=== PATIENT | female | born 2000 | race Caucasian/White ===

== ENCOUNTER 2024-08-13 08:14 | Outpatient (CLI) | payer BC, SELFPAY ==
--- NOTE | 2024-08-13 08:15 | CRLHL7_ITS ---
For Patients: As a result of the Cures Act, medical imaging exams and procedure reports are released immediately into your electronic medical record. You may view this report before your referring provider. If you have questions, please contact your health care provider. OB ULTRASOUND LESS THAN 14 WEEKS, 08/13/2024 CLINICAL HISTORY: Dating. COMPARISON: None. TECHNIQUE: Real time pepe scale imaging of the fetus was performed transvaginal. FINDINGS: LMP: 06/13/2024. HARMEET by LMP: 03/18/2025. GA: 8 weeks 5 days. Previous US: No. CRL: 2.3 cm. FHR: 176 bpm. GEST SAC: 2.7 cm. YOLK SAC: 3.4 mm. RIGIT OV: N/V. LEFT OV: 3.6 x 2.8 x 1.9 cm, within normal limits. IMPRESSION: 1. Single living intrauterine with sonographic gestational age 9 weeks 0 days and sonographic due date 03/18/2025. 2. Subchorionic hemorrhage measures 1.5 x 1.0 x 2.1 cm. Henrique Bradley M.D. Diagnostic Radiologist [email or web address] Transcribed: 9:35 am DW/Dictated by: Henrique Bradley MD @ 08/13/2024 9:07:00 AM (Electronically Signed)
== END 2024-08-13 08:15 | disposition home or self-care (01) ==
LOC: US 08:14
PROVIDERS: PCP Physician Assistant; Visit Provider Physician Assistant
DX: Z34.91 Encounter for supervision of normal pregnancy, unspecified, first trimester (principal); O20.9 Hemorrhage in early pregnancy, unspecified; Z3A.09 9 weeks gestation of pregnancy
CPT/HCPCS: 76817; 83021; 86703; 86706; 86803; 86850; 86900; 86901; 87086; 87340; 87491; 87591

== ENCOUNTER 2024-08-13 09:07 | Outpatient (CLI) | payer BC, SELFPAY ==
[2024-08-13 15:40] LABS: Chlamydia DNA Amplified* NOT DETECTED (No Detected); GC DNA Amplified* NOT DETECTED (No Detected)
== END 2024-08-13 09:08 | disposition home or self-care (01) ==
PROVIDERS: PCP Physician Assistant; Visit Provider Physician Assistant
DX: Z34.81 Encounter for supervision of other normal pregnancy, first trimester (principal)
CPT/HCPCS: 83020; 83021; 85660; 86592; 86703; 86704; 86706; 86762; 86787; 86803; 86850; 86900; 86901; 87086; 87340; 87491; 87591

== ENCOUNTER 2024-10-23 13:41 | Emergency (ER) | payer BC, SELFPAY ==
--- OUTSIDE RECORDS SUMMARY | 2024-10-23 13:43 | XMS_ITS | Encounter Summary ---
Author Organization [place] Address [address] [facility] [place] [address] Care Team Providers Care Shake Table Operator Name Role Phone Lisa Bates MD Primary Care Provider Lisa Bates MD Unavailable [phone] Lisa Bates MD Unavailable [phone] Rama Marin APRN [facility] Unavailable [phone] Linda Rolle MD Unavailable [phone] Miguel Spaulding MD Unavailable [phone] Linda Rolle MD Unavailable [phone] Miguel Spaulding MD Unavailable [phone] Encounter Details Date Type Department Care Team (Late st Contact Info) Description 03/11/2013 [facility] Medical Advice [address], [address] [place] [address] Ford Navas Social History Tobacco Use Types Packs/Day Years Used Date Smoking Tobacco: Never Comments:Both parents smoke outside. 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 Gender Identity Not on file Sexual Orientation Not on file documented as of this encounter Plan of Treatment Not on file documented as of this encounter Visit Diagnoses Not on filedocumented in this encounter Additional Health Concerns Infection Onset Date Last Indicated Resolved Time Rule Out Parvovirus 11/09/2021 11/09/2021 11/13/19 22 7:58 PM CDT documented as of this encounter Care Teams Shake Table Operator Relationship Specialty Start Date End Date Lisa Bates MD PCP - General Family Practice 07/22/11 [place] [address] [place] [address] PCP - Assigned PCP 03/29/10 06/26/18 [place] [address] [place] [address] Assigned PCP 01/26/12 04/18/20 Rama Marin APRN CN [address] [address] Assigned OBGYN Provider 02/14/20 1 Linda Rolle MD [address] [facility] [place] [address] Assigned OBGYN Provider 11/13/21 Miguel Spaulding MD [address] [address] [address] [place] [address] Assigned OBGYN Provider 12/18/21 Linda Rolle MD [address] [facility] [place] [address] Assigned OBGYN Provider 01/15/22 Miguel Spaulding MD 303 [facility] [address] [place] [address] Assigned OBGYN Provider 07/09/2203/15 documented as of this encounter
--- OUTSIDE RECORDS SUMMARY | 2024-10-23 13:43 | XMS_ITS | Encounter Summary ---
Author Organization [place] Address [address] [place] [address] Care Team Providers Care Montessori Paraprofessional Name Role Phone Lisa Bates MD Primary Care Provider Linda Rolle MD Unavailable [phone] Miguel Spaulding MD Unavailable [phone] Linda Rolle MD Unavailable [phone] Miguel Spaulding MD Unavailable [phone] Encounter Details Date Type Department Care Team (Late st Contact Info) Description 10/19/2021 [facility] Medical Advice [facility] [address] [place] [address] Katie Crowder, RN Social History Tobacco Use Types Packs/Day Years Used Date Smoking Tobacco: Passive Smo ke Exposure - Never Smoker Smokeless Tobacco: Never Comments:Both parents smoke outside. 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 Gender Identity Not on file Sexual Orientation Not on file documented as of this encounter Plan of Treatment Not on file documented as of this encounter Visit Diagnoses Not on filedocumented in this encounter Additional Health Concerns Infection Onset Date Last Indicated Resolved Time Rule Out Parvovirus 11/09/2021 11/09/2021 11/13/19 7:58 PM CDT documented as of this encounter Care Teams Montessori Paraprofessional Relationship Specialty Start Date End Date Lisa Bates MD PCP - General Family Practice 07/22/11 Linda Rolle MD [address] [place] [address] Assigned OBGYN Provider 11/13/21 Miguel Spaulding MD 303 [facility] [address] [place] [address] Assigned OBGYN Provider 12/18/21 Linda Rolle MD [address] [place] [address] Assigned OBGYN Provider 01/15/22 Miguel Spaulding MD [address] [facility] [address] [place] [address] Assigned OBGYN Provider 07/09/2203/15 documented as of this encounter
--- OUTSIDE RECORDS SUMMARY | 2024-10-23 13:43 | XMS_ITS | Encounter Summary ---
Author Organization [place] Address [address] [place] [address] Care Team Providers Care Boat Buffer Plastic Name Role Phone Lisa Bates MD Primary Care Provider Lisa Bates MD Unavailable [phone] Lisa Bates MD Unavailable [phone] Rama Marin APRN [facility] Unavailable [phone] Linda Rolle MD Unavailable [phone] Miguel Spaulding MD Unavailable [phone] Linda Rolle MD Unavailable [phone] Miguel Spaulding MD Unavailable [phone] Encounter Details Date Type Department Care Team (Late st Contact Info) Description 02/23/2012 [facility] Medical [address], [address] [place] [address] Aida Muñoz Social History Tobacco Use Types Packs/Day Years Used Date Smoking Tobacco: Passive Smo ke Exposure - Never Smoker Comments:Both parents smoke outside. 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 PLANNER Gender Identity Not on file Sexual Orientation Not on file documented as of this encounter Plan of Treatment Not on file documented as of this encounter Visit Diagnoses Not on filedocumented in this encounter Additional Health Concerns Infection Onset Date Last Indicated Resolved Time Rule Out Parvovirus 11/09/2021 11/09/2021 11/13/19 22 7:58 PM CDT documented as of this encounter Care Teams Boat Buffer Plastic Relationship Specialty Start Date End Date Lisa Bates MD PCP - General Family Practice 07/22/11 [place] [address] [place] [address] PCP - Assigned PCP 03/29/10 06/26/18 [place] [address] [place] [address] Assigned PCP 01/26/12 04/18/20 Rama Marin APRN [facility] [address] [address] Assigned OBGYN Provider 02/14/20 1 Linda Rolle MD 303 [place] [address] Assigned OBGYN Provider 11/13/21 Miguel Spaulding MD [address] [address] [address] [place] [address] Assigned OBGYN Provider 12/18/21 Linda Rolle MD 303 [facility] [place] [address] Assigned OBGYN Provider 01/15/22 Miguel Spaulding MD 303 [facility] [address] [place] [address] Assigned OBGYN Provider 07/09/2203/15 documented as of this encounter
--- OUTSIDE RECORDS SUMMARY | 2024-10-23 13:43 | XMS_ITS | Encounter Summary ---
Author Organization [place] Address [address] [facility] [place] [address] Care Team Providers Care Research Geologist Name Role Phone Lisa Bates MD Primary Care Provider Lisa Bates MD Unavailable [phone] Lisa Bates MD Unavailable [phone] Rama Marin APRN [facility] Unavailable [phone] Linda Rolle MD Unavailable [phone] Miguel Spaulding MD Unavailable [phone] Linda Rolle MD Unavailable [phone] Miguel Spaulding MD Unavailable [phone] Encounter Details Date Type Department Care Team (Late st Contact Info) Description 05/30/2013 [facility] Medical Advice [address], [address] [place] [address] Ford Navas Social History Tobacco Use Types Packs/Day Years Used Date Smoking Tobacco: Never Comments:Both parents smoke outside. 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 Gender Identity Not on file Sexual Orientation Not on file documented as of this encounter Plan of Treatment Not on file documented as of this encounter Visit Diagnoses Not on filedocumented in this encounter Additional Health Concerns Infection Onset Date Last Indicated Resolved Time Rule Out Parvovirus 11/09/2021 11/09/2021 11/13/19 22 7:58 PM CDT documented as of this encounter Care Teams Research Geologist Relationship Specialty Start Date End Date Lisa Bates MD PCP - General Family Practice 07/22/11 [place] [address] [place] [address] PCP - Assigned PCP 03/29/10 06/26/18 [place] [address] [place] [address] Assigned PCP 01/26/12 04/18/20 Rama Marin APRN CN [address] [address] Assigned OBGYN Provider 02/14/20 1 Linda Rolle MD 303 [facility] [place] [address] Assigned OBGYN Provider 11/13/21 Miguel Spaulding MD [address] [address] [address] [place] [address] Assigned OBGYN Provider 12/18/21 Linda Rolle MD 303 [facility] [place] [address] Assigned OBGYN Provider 01/15/22 Miguel Spaulding MD 303 [facility] [address] 160 [place] [address] Assigned OBGYN Provider 07/09/2203/15 documented as of this encounter
--- OUTSIDE RECORDS SUMMARY | 2024-10-23 13:43 | XMS_ITS | Clinical Summary ---
Author Organization [place] Address [address] [facility] [place] [address] Care Team Providers Care Assembler Dielectric Heater Name Role Phone Lisa Bates MD Primary Care Provider Allergies Active Allergy Reactions Criticality Noted Date Comments Penicillins Rash Low 05/15/2022 Medications sertraline (ZOLOFT) 50 MG tabletIndicatio ns:Current mild episode of major depressive disorder without prior episode Take 1 tablet (50mg) orally daily 90 tablet 1 3 Active Additional Information Patient not taking.Reported on 06/30/2023 Active Problems Problem Noted Date Diagnosed Date Acute postoperative anemia due to expected blood loss 05/18/2022 Obesity during , delivered 05/18/2022 delivery delivered 05/18/2022 obesity due to excess calories 06/21/2016 Headache 08/29/2013 Overview (01/23/2015): Problem list name updated by automated process. Provider to review ADHD (attention deficit hyperactivity disorder) 09/03/2009 Resolved Problems Problem Noted Date Diagnosed Date Resolved Date Labor and delivery indicatio n for care or intervention 05/15/2022 05/18/2022 Swelling of lower extremity during 3 05/18/2022 Supervision of other high ri sk , antepartum 05/10/2022 05/18/2022 Rh negative state in antepar mary alice period, third trimester 04/19/2022 05/18/2022 Obesity affecting in third trimester 04/19/2022 05/18/2022 Nexplanon insertion 8 - remove on or before 10/06/2020 10/06/2017 04/19/2022 Obesity 01/02/2015 06/21/2016 Overweight child 12/18/2009 01/02/2015 Routine infant or child health check 10/14/2004 12/16/2010 Encounters Date Type Department Care Team Description 10/21/2024 Medical Correspondence [facility] Information Management [address] [facility] [address] [place] [address] Scan, Non-Provider 10/21/[address] [facility] [place] [address] [facility] [address] [place] [address] Rima Hicks MD related condition, antepartum (Primary Dx) 08/09/[address] [facility] [place] [address] [facility] [address] [place] [address] Miguel Spaulding MD Pt request from Last 3 Months Immunizations Immunization Administration Dates Next Due Comvax (HIB/HepB) 06/18/2001,01/19/2001,11/17/19 01 DTAP (<7y) 10/14/2004, 2,03/26/2001,2000,2000 HEPA 12/16/2010,12/18/2009 HIB (PRP-T) 01/03/2002 HPV 10/11/2012,12/16/2010,12/18/2009 Influenza (IIV3) PF 01/28/2013, 8,04/25/2007,2006 Influenza Vaccine >6 months,quad, PF 02/01/2022, 03/05/2018 MMR (MMRII) 10/14/2004,09/21/2001 Mantoux Tuberculin Skin Test 12/12/2023,06/23/19 17 Meningococcal ACWY (Menactra ) 08/29/2013 Pneumococcal (PCV 7) 03/26/2001,01/19/2001,11/16 Poliovirus, inactivated (IPV) 10/14/2004 ,09/21/2001,01/19/2001,2000 TDAP (Adacel,Boostrix) 03/08/2022 TDAP Vaccine (Adacel) 08/29/2013,10/11/2012 Varicella (Varivax) 04/25/2007,09/21/2001 Family History Relation Status Comments Brother 1 Alive Brother 2 Brother 3 Alive Father Alive Maternal Grandfather Alive Maternal Grandmother Alive Mother Alive Paternal Grandfather Alive Paternal Grandmother Alive Social History Tobacco Use Types Packs/Day Years Used Date Smoking Tobacco: Never Passive Smoke Exposure: Current Smokeless Tobacco: Never Tobacco Cessation:Counseling Given: Not Answered Alcohol Use Standard Drinks/Week Comments Not Currently 0 (1 standard drink = 0.6 oz pur e alcohol) PHQ-2 Answer Date Recorded PHQ-2 Score 0 08/15/2022 [place] Depression Scale Answer Date Recorded Last EPDS Total Score Not on file 05/16/2022 The thought of harming myself has occurred to me . 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 Not on file Not on file Last Filed Vital Signs Vital Sign Reading Time Taken Comments Blood Pressure 118/72 06/30/2023 12:56 PM BUTTERMILK DRIER OPERATOR Pulse 62 06/30/2023 12:56 PM BUTTERMILK DRIER OPERATOR Temperature 36.4 C (97.6 F) 06/30/2023 12:56 PM BUTTERMILK DRIER OPERATOR Respiratory Rate 14 06/30/2023 12:56 PM BUTTERMILK DRIER OPERATOR Oxygen Saturation 99% 06/30/2023 12:56 PM BUTTERMILK DRIER OPERATOR Inhaled Oxygen Concentration - - Weight 117 kg (258 lb) 06/30/2023 12:56 PM BUTTERMILK DRIER OPERATOR Height 160 cm (5' 3) 11/09/2021 9:53 AM CDT Body Mass Index 45.7 11/09/2021 9:53 AM CDT Plan of Treatment Health Maintenance Due Date Last Done Comments ANNUAL REVIEW OF HM ORDERS 2000 DEPRESSION ACTION PLAN 2000 YEARLY PREVENTIVE VISIT 06/21/2017 06/21/19 17, 01/02/2015, 10/11/2012, Additional history exists CHLAMYDIA SCREENING 11/09/2022 11/09/2021, 7 PHQ-9 02/14/2023 08/15/2022, 06/23, 07/04/2022, Additional history exists COVID-19 VACCINE ( season) 2023 PAP 11/09/2024 11/09/2021 INFLUENZA VACCINE (#1) 2024 , 03/05/2018, 01/28/2013, Additional history exists ADVANCE CARE PLANNING 01/04/2027 01/04/2022 DTAP/TDAP/TD VACCINE (9 - Td or Tdap) 03/08/2032 03/08/2022, 08/29/2013, 10/11/2012, Additional history exists ZOSTER VACCINE (1 of 2) 2050 PNEUMOCOCCAL VACCINE: PEDIATRICS (0 to 5 YEARS) AND AT-RISK PATIENTS (6 to 49 YEARS) Aged Out 03/26/2001, 01/19/2001, 2000 No longer eligible based on patient's age to complete this topic HEPATITIS B VACCINE Completed 06/18/2001, 01/19/2001, 2000 HPV VACCINE Completed 10/11/2012, 11/23, 12/18/2009 MENINGITIS VACCINE Aged Out 08/29/2013 No longer eligible based on patient's age to complete this topic HEPATITIS C SCREENING Completed 10/28/2021 HIV SCREENING Completed 10/28/2021 MENINGITIS B VACCINE Aged Out No long er eligible based on patient's age to complete this topic Procedures Procedure Name Priority Date/Time Associated Diagnosis Comments LAB RESULT - HIM SCAN 08/13/2024 12:00 AM CDT CHLAMYDIA TRACHOMATIS PCR Routine 11/09/2021 10:15 AM CDT Screening examination for sexually transmitted disease GYNECOLOGIC CYTOLOGY Routine 11/09/2021 10:14 AM CDT Pap smear for cervical cancer screening HIV ANTIGEN ANTIBODY COMBO Routine 10/28/2021 4:08 PM CDT Supervision of normal first HEPATITIS C ANTIBODY Routine 10/28/2021 4:08 PM CDT Supervision of normal first from Last 3 Months or Most Recently Relevant to Health Maintenance Results * Lab Result - HIM Scan (08/13/2024 12:00 AM CDT) 08/13/2024 us Provider Outside NON-BEAKER LAB TESTING Final Result * CHLAMYDIA TRACHOMATIS PCR (11/09/2021 10:15 AM CDT) Chlamydia trachomatis Negative Negative 11/10/2021 1:45 PM CDT [facility] Comment:A negative result by world travel counselor mediated amplification does not preclude the presence of C. trachomatis infection because results are dependent on proper and adequate collection, absence of inhibitors and sufficient rRNA to be detected. Swab CERVIX UTERI STRUCTURE / Unknown Non-blood Collection / Unknown 11/09/2021 10:15 AM CDT 11/09/2021 11:04 AM CDT Linda Rolle MD LAB - MICRO GENERAL ORDERABLE S Final Result [facility] Inf. Diseases Diag. Lab [address] [facility], [address] [place] [address], [facility] [phone] * Pap imaged thin layer screen only - recommended age 21 - 24 years (11/09/2021 10:14 AM CDT) Interpretation Negative for Intraepithelial Lesion or Malignancy (NILM) 11/12/2021 9:55 AM CDT [facility] at 0955 CDT Comment Papanicolaou Test Limitations: Cervical cytology is a screening test with limited sensitivity, and regular screening is critical for cancer prevention. Pap tests are primarily effective for the diagnosis/prevent ion of squamous cell carcinoma, not adenocarcinoma or other cancers. 11/12/2021 9:55 AM CDT [facility] Specimen Adequacy Satisfactory for evaluation, endocervical/christina sformation zone component absent 11/12/2021 9:55 AM CDT [facility] Clinical Information 11/12/2021 9:55 AM CDT [facility] LMP/Menopause Date 08/24/2021 11/12/2021 9:55 AM CDT [facility] Reflex Testing No 11/12/2021 9:55 AM CDT [facility] Previous Abnormal? No 11/12/2021 9:55 AM CDT [facility] Performing Labs The technical component of this testing was completed at [facility] 11/12/2021 9:55 AM CDT [facility] Brushing CERVIX UTERI STRUCTURE / Unknown Non-blood Collection / Unknown 11/09/2021 10:14 AM CDT 11/09/2021 11:04 AM CDT Comment:Pap imaged thin laye r screen only - recommended age 21 - 24 yearsAnswer REQUIRED pap questions below:LMP (date): Patient's last menstrual period was 08/24/2021.PAP SOURCE: Cervical - EndocervicalPREVIOUS PAP RESULTS: No results found for: PAPPERTINENT CLINICAL HISTORY: Linda Rolle MD LAB - BEAKER AP Final Result [facility] Specialty Lab [address] [facility], [address] [phone], [facility] [phone] * HIV Antigen Antibody Combo (10/28/2021 4:08 PM CDT) HIV Antigen Antibody Combo Nonreactive Nonreactive 10/29/2021 10:28 AM CDT [facility]PROT/EN DO Comment:HIV-1 p24 Ag & HIV-1 /HIV-2 Ab Not Detected Blood STRUCTURE OF RIGHT UPPER LIMB / Unknown Venipuncture / Unknown 10/28/2021 4:08 PM CDT 10/28/2021 4:09 PM CDT Linda Rolle MD LAB - BLOOD ORDERABLES Final Result [facility]ENDO Specialty Core/Prot/Endo [address] [facility] [address], [address] [place] [address], [facility] [phone] * Hepatitis C antibody (10/28/2021 4:08 PM CDT) Hepatitis C Antibody Nonreactive Nonreactive 10/29/2021 10:28 AM CDT [facility]/EN DO Blood STRUCTURE OF RIGHT UPPER LIMB / Unknown Venipuncture / Unknown 10/28/2021 4:08 PM CDT 10/28/2021 4:09 PM CDT Narrative [facility] - 10/29/2021 10:28 AM CDT Assay performance characteristics have not been established for newborns, infants, and children. Linda Rolle MD LAB - BLOOD ORDERABLES Final Result [facility]PROT/ENDO Specialty Core/Prot/Endo [address] [facility] [address] [facility], [address] [place] [address], [facility] [phone] from Last 3 Months or Most Recently Relevant to Health Maintenance [place] For more information, please contact: [phone] * Full Code (Latest Code Status on File) Date Activated Date Inactivated Comments 05/16/2022 3:05 AM 05/18/2022 1:13 PM All basic an d advanced life-sustaining interventions are performed as appropriate Question Answer Comments Code status determined by: Discussion with patie nt/ legal decision maker * Full Code Date Activated Date Inactivated Comments 05/15/2022 4:08 AM 05/16/2022 3:05 AM All basic an d advanced life-sustaining interventions are performed as appropriate Question Answer Comments Code status determined by: Discussion with patie nt/ legal decision maker Care Teams Assembler Dielectric Heater Relationship Specialty Start Date End Date Lisa Bates MD PCP - General Family Practice 07/22/11
--- OUTSIDE RECORDS SUMMARY | 2024-10-23 13:44 | XMS_ITS | Encounter Summary ---
Author Organization [place] Address [address] [facility] [place] [address] Care Team Providers Care Checkout Operator Name Role Phone Lisa Bates MD Primary Care Provider Miguel Spaulding MD Unavailable [phone] Encounter Details Date Type Department Care Team (Late st Contact Info) Description 10/05/2023 [facility] [address] [place] [address] Aida Muñoz Social History Tobacco Use Types Packs/Day Years Used Date Smoking Tobacco: Never Passive Smoke Exposure: Current Smokeless Tobacco: Never Alcohol Use Standard Drinks/Week Comments Not Currently 0 (1 standard drink = 0.6 oz pur e alcohol) PHQ-2 Answer Date Recorded PHQ-2 Score 0 08/15/2022 [place] Depression Scale Answer Date Recorded Last EPDS Total Score Not on file 05/16/2022 The thought of harming myself has occurred to me . 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
--- OUTSIDE RECORDS SUMMARY | 2024-10-23 13:44 | XMS_ITS | Encounter Summary ---
Author Organization [place] Address [address] [facility] [place] [address] Care Team Providers Care Roof Plumber Name Role Phone Lisa Bates MD Primary Care Provider Miguel Spaulding MD Unavailable [phone] Encounter Details Date Type Department Care Team (Late st Contact Info) Description 07/18/2022 [facility] Medical Advice [facility] Women's [address] [place] [address] Joselyn Roper, [facility] Social History Tobacco Use Types Packs/Day Years Used Date Smoking Tobacco: Never Passive Smoke Exposure: Current Smokeless Tobacco: Never Alcohol Use Standard Drinks/Week Comments Not Currently 0 (1 standard drink = 0.6 oz pur e alcohol) PHQ-2 Answer Date Recorded PHQ-2 Score 3 07/18/2022 [place] Depression Scale Answer Date Recorded Last EPDS Total Score Not on file 05/16/2022 The thought of harming myself has occurred to me . 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 No / Unsure 07/18/2022 1:25 PM CDT documented as of this encounter Plan of Treatment Not on file documented as of this encounter Visit Diagnoses Not on filedocumented in this encounter Additional Health Concerns Assessment Noted Time PHQ-9 Depression Total Score: 13 023 2:31 PM CDT documented as of this encounter Care Teams Roof Plumber Relationship Specialty Start Date End Date Lisa Bates MD PCP - General Family Practice 07/22/11 Miguel Spaulding MD [address] [facility] [address] [place] [address] Assigned OBGYN Provider 07/09/2203/15 documented as of this encounter
--- OUTSIDE RECORDS SUMMARY | 2024-10-23 13:44 | XMS_ITS | Encounter Summary ---
Author Organization [place] Address [address] [facility] [place] [place] [address] Care Team Providers Care Blanker Operator Name Role Phone Lisa Bates MD Primary Care Provider Encounter Details Date Type Department Care Team (Late st Contact Info) Description 10/21/2024 Medical Correspondence [facility] Health Information Management [address] [facility] [address] [place] [address] Scan, Non-Provider Social History Tobacco Use Types Packs/Day Years Used Date Smoking Tobacco: Never Passive Smoke Exposure: Current Smokeless Tobacco: Never Alcohol Use Standard Drinks/Week Comments Not Currently 0 (1 standard drink = 0.6 oz pur e alcohol) PHQ-2 Answer Date Recorded PHQ-2 Score 0 08/15/2022 [place] Depression Scale Answer Date Recorded Last EPDS Total Score Not on file 05/16/2022 The thought of harming myself has occurred to me . 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
--- OUTSIDE RECORDS SUMMARY | 2024-10-23 13:44 | XMS_ITS | Encounter Summary ---
Author Organization [place] Address [address] [facility] [place] [address] Care Team Providers Care Control Board Operator Name Role Phone Lisa Bates MD Primary Care Provider Linda Rolle MD Unavailable [phone] Miguel Spaulding MD Unavailable [phone] Encounter Details Date Type Department Care Team (Late st Contact Info) Description 06/20/2022 [facility] Medical Advice [facility] Women's [address] [place] [phone] Joselyn Roper, [facility] Social History Tobacco Use Types Packs/Day Years Used Date Smoking Tobacco: Never Passive Smoke Exposure: Current Smokeless Tobacco: Never Alcohol Use Standard Drinks/Week Comments Not Currently 0 (1 standard drink = 0.6 oz pur e alcohol) PHQ-2 Answer Date Recorded PHQ-2 Score 0 05/26/2022 [place] Depression Scale Answer Date Recorded Last EPDS Total Score Not on file 05/16/2022 The thought of harming myself has occurred to me . 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 No / Unsure 05/26/2022 1:20 PM HIDE BUFFER documented as of this encounter Plan of Treatment Not on file documented as of this encounter Visit Diagnoses Not on filedocumented in this encounter Additional Health Concerns Assessment Noted Time PHQ-9 Depression Total Score: 0 05/26/19 1:43 PM HIDE BUFFER documented as of this encounter Care Teams Control Board Operator Relationship Specialty Start Date End Date Lisa Bates MD PCP - General Family Practice 07/22/11 Linda Rolle MD [address] [place] [address] Assigned OBGYN Provider 01/15/22 Miguel Spaulding MD [address] [facility] [address] [place] [address] Assigned OBGYN Provider 07/09/2203/15 documented as of this encounter
--- OUTSIDE RECORDS SUMMARY | 2024-10-23 13:44 | XMS_ITS | Encounter Summary ---
Author Organization [place] Address [address] [facility] [address] Care Team Providers Care Compliance Nurse Name Role Phone Lisa Bates MD Primary Care Provider Reason for Referral * Diagnostic Imaging Ultrasound (Routine) - Pending Review Specialty Diagnoses / Procedures Referred By Contac t Referred To Contact Radiology. Diagnoses related condition, antepartum Procedures [facility] US Comprehensive Single Rima Hicks MD [facility] [address] [place] [address] Phone: tel: fax: Referral ID Status Reason Start Date Expiration Date V isits Requested Visits Authorized [id number] Pending Review 10/21/2024 10/21/2025 1 1 * Consultation (Routine: Next available opening) - Pending Review Specialty Diagnoses / Procedures Referred By Contkristen t Referred To Contact Diagnoses related condition, antepartum Rima Hicks MD [facility] [address] [place] [address] Phone: tel: fax: [facility] [address] [place] [address] Phone: tel: fax: Referral ID Status Reason Start Date Expiration Date V isits Requested Visits Authorized [id number] Pending Review 10/21/2024 10/21/2025 1 1 Question Answer Preferred Location: [facility] Working Due Date: 03/20/2025 US Ordering Instructions: If US ONLY is requested, select appropriate US Order and DO NOT order [facility] Consult. Reason for Referral: Ultrasound Ultrasound - Includes Interpretation/Recommendations (*indicates inclusion of genetic counseling): Comprehensive US (>= 18w0d GA) - obesity Indication (* indicates inclusion of genetic counseling): Other (enter details in Comments) - obesity Fax number results need to be sent to: [facility] Rima Hitchcock [phone] Comments obesity Encounter Details Date Type Department Care Team (Latest Contact Info) Description 10/21/2024 Transcribe Orders [facility] [address] [place] [address] Rima Hicks MD [facility] [address] [place] [address] related condition, antepartum (Primary Dx) Social History Tobacco Use Types Packs/Day Years Used Date Smoking Tobacco: Never Passive Smoke Exposure: Current Smokeless Tobacco: Never Alcohol Use Standard Drinks/Week Comments Not Currently 0 (1 standard drink = 0.6 oz pur e alcohol) PHQ-2 Answer Date Recorded PHQ-2 Score 0 08/15/2022 [place] Depression Scale Answer Date Recorded Last EPDS Total Score Not on file 05/16/2022 The thought of harming myself has occurred to me . 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 Not on file documented as of this encounter Plan of Treatment Scheduled Orders Name Type Priority Associated Diagnoses Orde r Schedule [facility] US Comprehensive Single Imaging Routine related condition, antepartum Expected: 10/21/2024 (Approximate), Expires: 08/21/2025 Scheduled Referrals Name Type Priority Associated Diagnoses Orde r Schedule [facility] Referral - Referral Routine: Next available opening related condition, antepartum Expected: 10/21/2024 (Approximate), Expires: 04/19/2025 documented as of this encounter Visit Diagnoses Diagnosis related condition, antepartum- Primary documented in this encounter Additional Health Concerns Assessment Noted Time PHQ-9 Depression Total Score: 1 08/16/19 23 11:31 AM CDT documented as of this encounter Care Teams Compliance Nurse Relationship Specialty Start Date End Date Lisa Bates MD PCP - General Family Practice 07/22/11 documented as of this encounter
--- OUTSIDE RECORDS SUMMARY | 2024-10-23 13:44 | XMS_ITS | Encounter Summary ---
Author Organization [place] Address [address] [facility] [place] [address] Care Team Providers Care Territory Sales Professional Name Role Phone Lisa Bates MD Primary Care Provider Linda Rolle MD Unavailable [phone] Miguel Spaulding MD Unavailable [phone] Encounter Details Date Type Department Care Team (Late st Contact Info) Description 02/11/2022 [facility] [place] [facility] Women's [address] [place] [phone] Katie Crowder, RN Social History Tobacco Use Types Packs/Day Years Used Date Smoking Tobacco: Never Passive Smoke Exposure: Yes Smokeless Tobacco: Never Comments:Both parents smoke outside. 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 No / Unsure 02/01/2022 3:18 PM CDT documented as of this encounter Plan of Treatment Not on file documented as of this encounter Visit Diagnoses Not on filedocumented in this encounter Care Teams Territory Sales Professional Relationship Specialty Start Date End Date Lisa Bates MD PCP - General Family Practice 07/22/11 Linda Rolle MD [address] [place] [address] Assigned OBGYN Provider 01/15/22 Miguel Spaulding MD [address] [facility] [address] [place] [address] Assigned OBGYN Provider 07/09/2203/15 documented as of this encounter
--- OUTSIDE RECORDS SUMMARY | 2024-10-23 13:44 | XMS_ITS | Encounter Summary ---
Author Organization [place] Address [address] [facility] [place] [address] Care Team Providers Care Healthcare Account Manager Name Role Phone Lisa Bates MD Primary Care Provider Miguel Spaulding MD Unavailable [phone] Encounter Details Date Type Department Care Team (Late st Contact Info) Description 08/01/2022 [facility] Medical Advice [facility] Women's [address] [place] [address] Joselyn Roper, [facility] Social History Tobacco Use Types Packs/Day Years Used Date Smoking Tobacco: Never Passive Smoke Exposure: Current Smokeless Tobacco: Never Alcohol Use Standard Drinks/Week Comments Not Currently 0 (1 standard drink = 0.6 oz pur e alcohol) PHQ-2 Answer Date Recorded PHQ-2 Score 3 07/18/2022 [place] Depression Scale Answer Date Recorded Last EPDS Total Score Not on file 05/16/2022 The thought of harming myself has occurred to me . 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
[2024-10-23 13:49] VITALS: BP 125/80; PULSE 109; RESP 20; TEMP 36.3; O2SAT 98; BMI 45.5
--- NOTE | 2024-10-23 14:08 | ED_ITS ---
HPI - General Adult General Chief complaint: Neuro Symptoms/Altered Deficit Stated complaint: 19 weeks , R side numb Time Seen by Provider: 10/23/24 13:50 History of Present Illness HPI narrative: This 24-year-old female is 19 weeks with her 2nd . She comes in stating that she feels tingling sensation only on the right side of her body over the past 3 days. She states that it seemed to start more mildly in her right leg and now it does involve her right abdomen and right arm somewhat. She does not have any loss of strength. She does not have any speech change or visual change. She does not report a headache. She arrives here able to ambulate without any sign of difficulty. Related Data Home Medications ?Medication ?Instructions ?Recorded ?Confirmed GOY-aiex-AZ-omega 3 fatty no.1 27 cap PO 08/13/2409/23 0/25 mg-1 mg-300 mg capsule Allergies Allergy/AdvReac Type Severity Reaction Status Date / Time Penicillins Allergy Intermediate Rash Verified 10/11/24 12:51 Review of Systems Status of ROS: Reports: 10 or more systems reviewed and unremarkable except as noted in History and below Narrative: Constitutional: No fevers, no weight gain or loss. Eyes: No discharge. No vision changes. HENT: No congestion, no sore throat, no ear pain. Cardiovascular: No chest pain, no palpitations. Respiratory: No shortness of breath, no wheezes, no cough. Gastrointestinal: No abdominal pain, no vomiting, no diarrhea. Genitourinary: No dysuria, no hematuria. Musculoskeletal: Normal range of motion. Skin: No rashes, no pruritis. Neurological: No dizziness, weakness, speech change. Tingling sensation as described above. Endo/Heme/Allergies: No bruising or bleeding. No polydipsia. Pysch: no suicidality, no anxiety, no insomnia. All other systems reviewed and are negative. PFSH PFS Medical History depression ?F53.0 - depression (ICD-10) Surgical History History of ?Z98.891 - History of uterine scar from previous surgery (ICD-10) Social History Narrative: SOCIAL HISTORY: Occupation: Student at [employer]. Marital status: . Hoahaoism/cultural needs: no. Chemical or radiation exposure: no. Pre- tobacco use: no. Pre- alcohol use: no. Current tobacco use: no. Current alcohol use: no. Recreational drug use: no. Dietary restrictions: no. Blood transfusion acceptable in an emergency: no. PSYCHOSOCIAL HISTORY: History of depression or currently depressed: History of depression. Current or past physical, emotional, or sexual mistreatment: Denies. Problems that will make it hard to make it to appointments: Denies. What is your current living situation?: I presently have a place to live Problems where you live: no known problems In the past 12 months, utilities in danger of being shut off: no In past 12 months, lack of transportation kept you from medical appts, meetings, work, or getting things needed for daily living: no In the past 12 mos, have been you worried that your food would run out before you had money to buy more?: never true In the past 12 mos, the food you bought just didn't last and you didn't have money to buy more?: never true How often does anyone, including family, friends and others, physically hurt you : never How often does anyone, including family, friends and others, insult or talk down to you: never How often does anyone, including family, friends and others, threaten you with harm: never How often does anyone, including family, friends and others, scream or curse at you: never Exam Narrative: Exam Narrative: Constitutional: Well-developed, well-nourished, no acute distress. HEENT: Normocephalic, atraumatic. Neck: Normal range of motion. Nontender. Supple. Heart: Regular. No murmurs. Normal rate. Intact distal pulses. Lungs: Clear to auscultation. No chest discomfort. No wheezes, rhonchi, or rales. Abdomen: Normal bowel sounds. Nontender. No rebound tenderness. Genitalia: Deferred. Back: No midline tenderness. Normal range of motion. Extremities: Normal range of motion. No injury. Skin: Intact. No rash. Warm. No erythema or pallor. Neurologic: No weakness. Alert and oriented. No facial asymmetry. Tongue is midline. Wojigr-ap-fjey is normal. No pronator drift. Administrative Personal Assistant strength is equal bilaterally. Able to raise each leg from the bed. Psychiatric: No suicidality. No anxiety or depression. No insomnia. Nursing notes and vitals signs are reviewed. Const: Vital Signs, click to edit/add: Vital Signs - 24 hr 10/23/24 13:49 Temperature 97.4 F L Pulse Rate [Pulse Oximeter] 109 H Respiratory Rate 20 Blood Pressure [Ri ght Upper Arm] 125/80 Pulse Oximetry 98 Oxygen Delivery Me thod Room Air Course Vital Signs Vital signs: Initial Vital Signs Temperature 97.4 F L 10/23/24 13:49 Temperature Source Temporal Artery Scan 10/23/24 13:49 Pulse Rate 109 H 10/23/24 13:49 Respiratory Rate 20 10/23/24 13:49 Blood Pressure 125/80 10/23/24 13:49 Blood Pressure Mean 95 10/23/24 13:49 Blood Pressure Position Sitting 10/23/24 13:49 Pulse Oximetry 98 10/23/24 13:49 Oxygen Delivery Method Room Air 10/23/24 13:49 Vital Signs Temperature 97.4 F L 10/23/24 13:49 Pulse Rate 109 H 10/23/24 13:49 Respiratory Rate 20 10/23/24 13:49 Blood Pressure 125/80 10/23/24 13:49 Pulse Oximetry 98 10/23/24 13:49 Oxygen Delivery Method Room Air 10/23/24 13:49 Temperature 97.4 F L 10/23/24 13:49 Pulse Rate 109 H 10/23/24 13:49 Respiratory Rate 20 10/23/24 13:49 Blood Pressure 125/80 10/23/24 13:49 Pulse Oximetry 98 10/23/24 13:49 Oxygen Delivery Method Room Air 10/23/24 13:49 Medical Decision Making MDM Narrative Medical decision making narrative: This patient is 19 weeks and is reporting some tingling sensations on the right side of her body over the past 3 or 4 days. Her neurologic exam is completely normal. She does have sensation but states that at times there is tingling. I did state reassurances regarding her exam. Her vital signs are all in normal range except for her heart rate initially was a bit elevated. Ultrasound of her showed normal anatomy and activity. She was reassured with these results and is okay to be discharged home. Discharge Plan Discharge Clinical Impression: Paresthesias Patient Disposition: Home, Self-Care Condition: Stable Additional Instructions: Continue current plans. Follow up with MD return if worsening symptoms occur. Prescriptions: No Action FYS-ijau-YH-omega 3 fatty no.1 27-1-300 mg capsule PO Follow Up/Referrals: Ava Guzman PA-C [Primary Care Provider, FIELD MARKETING DIRECTOR] Stand Alone Forms: [facility] Info Instructions Procedures Ultrasound Other exam #1: Anatomical areas examined: at 19 weeks gestation. Indications: Paresthesias. Exam type: focused emergency ultrasound Description/findings: Normal anatomy at 19 weeks gestation. Normal heart activity and movement. Impression: Normal exam at 19 weeks gestation.
== END 2024-10-23 14:54 | disposition home or self-care (01) ==
PROVIDERS: Emergency Provider Emergency Medicine Emergency Medical Services; PCP Physician Assistant
DX: O26.892 Other specified pregnancy related conditions, second trimester (principal); R20.2 Paresthesia of skin; Z3A.19 19 weeks gestation of pregnancy
CPT/HCPCS: 76857; 99284

== ENCOUNTER 2024-12-24 11:15 | Outpatient (CLI) | payer BC, SELFPAY ==
--- NOTE | 2024-12-24 11:30 | CRLHL7_ITS ---
For Patients: As a result of the Cures Act, medical imaging exams and procedure reports are released immediately into your electronic medical record. You may view this report before your referring provider. If you have questions, please contact your health care provider. OB ULTRASOUND FOLLOW-UP/LIMITED, 12/24/2024 CLINICAL HISTORY: Obesity. COMPARISON: None. TECHNIQUE: Real time pepe scale imaging of the fetus was performed. Transabdominal imaging performed. FINDINGS: LMP: 06/13/2024. HARMEET by LMP: 03/20/2025. Gestation: Single. Cervix: Not visualized. Positioning: Breech. Amniotic Fluid: 7.0 cm SDP. Placenta: Technique: TA. Placenta Position: Posterior. Dopplers: Heart Rate: 144 bpm. BIOMETRY BPD: 6.8 cm, 27 weeks 2 days. 26% HC: 26.5 cm, 28 weeks 6 days. 58% AC: 25.0 cm, 29 weeks 2 days. 85% FL: 5.2 cm, 27 weeks 5 days. 33.0% FL/AC Ratio: 20.70% HC/AC Ratio: 1.06. EFW: 1244 grams, 2 lb 12 oz. Age by this US: 28 weeks 2 days. HARMEET by this US: 03/16/2025. Percentile by HARMEET: 71% IMPRESSION: 1. Sonographic gestational age 28 weeks 2 days and sonographic due date 03/16/2025. Sonographic age is 4 days ahead of the clinical age. 2. Estimated weight 71st percentile. Abdominal circumference 85th percentile. Henrique Bradley M.D. Diagnostic Radiologist [email or web address] Transcribed: 1:04 pm DW/Dictated by: Henrique Bradley MD @ 12/24/2024 12:06:00 PM (Electronically Signed)
== END 2024-12-24 11:16 | disposition home or self-care (01) ==
LOC: US 11:16
PROVIDERS: PCP Physician Assistant; Visit Provider Obstetrics & Gynecology
DX: O99.213 Obesity complicating pregnancy, third trimester (principal); E66.01 Morbid (severe) obesity due to excess calories; Z68.41 Body mass index [BMI] 40.0-44.9, adult; Z3A.28 28 weeks gestation of pregnancy
CPT/HCPCS: 76816; 86592

== ENCOUNTER 2025-01-24 09:52 | Outpatient (CLI) | payer BC, SELFPAY ==
--- NOTE | 2025-01-24 10:00 | CRLHL7_ITS ---
For Patients: As a result of the Century Cures Act, medical imaging exams and procedure reports are released immediately into your electronic medical record. You may view this report before your referring provider. If you have questions, please contact your health care provider. OB ULTRASOUND LMP: 06/13/2024. HARMEET by LMP: 03/20/2025. GA: 32 w, 1 d. Single. INDICATION: Obesity. TECHNIQUE: Real time grayscale imaging of the fetus was performed. Transabdominal. CERVIX: Not visualized. POSITIONING: Vertex. AMNIOTIC FLUID: 6.0 cm. SDP (N: greater than 2 x 1 cm) PLACENTA: Technique: Transabdominal. PLACENTA POSITION: Posterior. DOPPLER: heart rate: 147 bpm. BIOMETRY: BPD: 8.5 cm. 34 w, 2 d, 92%. HC: 31.3 cm. 35 w, 0 d, 86%. AC: 30.5 cm. 34 w, 3 d, 96%. FL: 6.1 cm. 31 w, 5 d, 26%. FL/AC ratio: 20.03%. HC/AC ratio: 1.03. EFW: 2265g. Weight: 5 lbs., 0 oz. age by this US: 33 w, 6 d. HARMEET by this US: 03/08/2025. Percentile by HARMEET: 87%. IMPRESSION: 1. Sonographic gestational age 33 weeks 6 days and sonographic due date 03/08/2025. Sonographic age is 12 days ahead of the clinical age. 2. Estimated weight 87th percentile. Abdominal circumference 96th percentile. Hernique Bradley M.D. Diagnostic Radiologist [email or web address] MARCELLUS/mitra manriquez/Dictated by: Henrique Bradley MD @ 01/24/2025 10:48:00 AM (Electronically Signed)
== END 2025-01-24 09:53 | disposition home or self-care (01) ==
LOC: US 09:52
PROVIDERS: PCP Physician Assistant; Visit Provider Obstetrics & Gynecology
DX: O99.213 Obesity complicating pregnancy, third trimester (principal); E66.01 Morbid (severe) obesity due to excess calories; Z68.41 Body mass index [BMI] 40.0-44.9, adult; O36.63X0 Maternal care for excessive fetal growth, third trimester, not applicable or unspecified; Z3A.32 32 weeks gestation of pregnancy
CPT/HCPCS: 76816

== ENCOUNTER 2025-02-06 09:09 | Outpatient (CLI) | payer BC, SELFPAY ==
--- NOTE | 2025-02-06 09:15 | CRLHL7_ITS ---
For Patients: As a result of the Century Cures Act, medical imaging exams and procedure reports are released immediately into your electronic medical record. You may view this report before your referring provider. If you have questions, please contact your health care provider. Indication: BPP for obesity HARMEET: 03/20/2025. Technique: Real-time sonographic images of the pelvis were obtained transabdominally using grayscale, color, and Doppler imaging. Comparison: 01/24/2025. Findings: A single intrauterine is present in cephalic position. Cardiac activity in the fetus is demonstrated at 134 BPM. Placenta: Posterior. No previa or abruption. Amniotic Fluid: Single deepest pocket measures 4.4 centimeter. Biophysical profile: Breathin/2 Movement: 2/2 Tone: 2/2 Fluid volume: 2/2 Total: 11/29 Impression: 1. Single living intrauterine gestation in cephalic presentation, with heartrate 134 BPM. 2. Posterior placenta without previa or abruption. 3. Amniotic fluid with single deepest pocket measuring 4.4 centimeter. 4. BPP 11/29. Dictated by Jesse Ibanez MD @ 02/09/2025 12:32:30 PM (Electronically Signed)
== END 2025-02-06 09:10 | disposition home or self-care (01) ==
LOC: US 09:09
PROVIDERS: PCP Physician Assistant; Visit Provider Obstetrics & Gynecology
DX: O99.213 Obesity complicating pregnancy, third trimester (principal); E66.01 Morbid (severe) obesity due to excess calories; Z68.41 Body mass index [BMI] 40.0-44.9, adult; Z3A.34 34 weeks gestation of pregnancy
CPT/HCPCS: 76819

== ENCOUNTER 2025-02-13 10:05 | Outpatient (CLI) | payer BC, SELFPAY ==
--- NOTE | 2025-02-13 10:15 | CRLHL7_ITS ---
For Patients: As a result of the Cures Act, medical imaging exams and procedure reports are released immediately into your electronic medical record. You may view this report before your referring provider. If you have questions, please contact your health care provider. OB ULTRASOUND BIOPHYSICAL PROFILE HARMEET by LMP: 03/20/2025. GA: 35 w, 0 d. Single. Comparison: Ultrasound 02/06/2025. INDICATION: Morbid obesity. TECHNIQUE: Real time pepe scale imaging of the fetus was performed. Transabdominal. CERVIX: No visualized. POSITIONING: Vertex. AMNIOTIC FLUID: 7.0 cm. SDP (N: greater than 2 x 1 cm) BIOPHYSICAL PROFILE: Total score: 2. Gross body movements: 2. tone: 2. Respiratory activity: 2. Amniotic fluid: 2. (SDP N: greater than 2 x 1 cm) Total: 11/29. PLACENTA: Technique: Transabdominal. PLACENTA POSITION: Posterior. DOPPLER: heart rate: 134 bpm. IMPRESSION: Normal biophysical profile 11/29. Henrique Bradley M.D. Diagnostic Radiologist [email or web address] MARCELLUS/alysha JR/Dictated by: Henrique Bradley MD @ 02/13/2025 11:23:00 AM (Electronically Signed)
== END 2025-02-13 10:06 | disposition home or self-care (01) ==
LOC: US 10:06
PROVIDERS: Visit Provider Obstetrics & Gynecology
DX: O99.213 Obesity complicating pregnancy, third trimester (principal); E66.01 Morbid (severe) obesity due to excess calories; Z68.41 Body mass index [BMI] 40.0-44.9, adult; Z3A.35 35 weeks gestation of pregnancy
CPT/HCPCS: 76819

== ENCOUNTER 2025-02-19 07:51 | Outpatient (CLI) | payer BC, SELFPAY ==
[2025-02-19] VITALS (10 sets, daily range): BP systolic 111–128; BP diastolic 56–73; PULSE 72–101; RESP 16; TEMP 36.8
[2025-02-19] MEDS: ACETAMINOPHEN 500 MG TABLET 1000 MG PO (08:35)
[2025-02-19] MEDS: PROCHLORPERAZINE 10 MG TABLET PO (08:36)
[2025-02-19 08:53] LABS: Hematocrit* 32.9 % (33.0-51.0); Hemoglobin* 10.7 gm/dL (12.0-16.0); Mean Corpuscular HGB Conc 33 gm/dL (32-36); Mean Corpuscular Hemoglobin 26 pg (26-34); Mean Corpuscular Volume 81 fL (80-100); Red Blood Count* 4.05 m/uL (4.00-5.20); White Blood Count* 11.78 K/uL (4.50-11.00)
[2025-02-19 09:02] LABS: Slide Review Reflex No
[2025-02-19 09:06] LABS: Creatinine* 0.5 mg/dL (0.5-1.5); Estimated Glomerular Filt Rate 134 ml/min
[2025-02-19 09:07] LABS: Alanine Aminotransferase* 10 U/L (4-35); Aspartate Amino Transferase* 19 U/L (12-35)
[2025-02-19] MEDS: PROMETHAZINE 25 MG TABLET 12.5 MG PO (09:55)
--- NOTE | 2025-02-19 10:37 | PM.OBLDTN ---
OB - Triage/Final Diagnosis Visit Information Narrative: The patient is a 24 year old 2 para 1 at 35 weeks gestation by LMP, who presents with headache. is complicated by multiple sclerosis, history of , abnormal FAS (ureterocele, intrcardiac echogenic focus - low risk NIPT), obesity. Lakeshia notes onset of a headache since Monday. She notes it has been constant since that time, of varying severity. Generally, her symptoms were pretty mild (ranging from 1-4 on pain scale) where she did not require any treatment. She took tylenol 1000mg yesterday afternoon, with improvement but not resolution of symptoms. Starting at 0400 this morning, her headache is much more significant. Pain is rated as a 7/10 in severity, where she is intermittently tearful due to pain. She describes the pain as stabbing primarily behind her left eye, but it also radiates up her head and toward the jaw. She endorses associated photophobia, slight phonophobia. No nausea/vomiting. Denies any neck pain or upper extremity pain/numbness/tingling. No vision changes (floaters, black spots, decreased visual acuity). Denies focal neurologic deficits. Denies nasal congestion/drainage, cough, sore throat. No fever/chills. She notes her daughter has a slight cold, no other sick contacts. Patient was last seen by her neurologist for MS yesterday. She did report her headache there, notes that all of her neurologic exam was normal and they were not particularly worried about the headache. Patient denies any history of VTE/PE. She has no calf pain/erythema or unilateral edema. No chest pain or dyspnea. Vital signs entirely within normal limits. No hypertension noted, fever or tachycardia. General: Alert and oriented, in no acute distress. Patient does have the room dark. Psych: Appropriate mood and affect Neural: No apparent focal neurologic deficits. Extraocular movements normal. Patient is able to lift her eyebrows, smile and stick her tongue out symmetrically. No upper extremity weakness. She notes some paresthesia on the left side of her face, which with light touch makes her headache worse. Neck has full ROM, no nuchal rigidity. Labs: - CBC with white blood cell count of 11.78, hemoglobin 10.7, platelets 210, creatinine 0.5, AST 19, ALT 10 Treatment: - Tylenol 1000mg and compazine 10mg PO at 0830, pain went from 7 to 6.5/10 in 1 hour - Phenergan 12.5mg PO at 0930, pain went to 2/10. Repeat physical exam shows patient alert and conversant, lights on in room. She is well appearing. She notes she feels so much better since taking phenergan. Plan continued pain management with tylenol 1000mg Q6H PRN and phenergan 12.5mg Q8H PRN headache. Recommend increased hydration and a nap today. Headache, photophobia and phonophobia is thought to be secondary to migraine given response. No evidence of preeclampsia, entirely normotensive with normal labs. Clinical suspicion for acute intracranial pathology is low (RCVS, CSVT) given significant symptomatic improvement. Strict return precautions reinforced for worsening/recurrent symptoms, any focal neurologic deficits, fevers/chest pain/dyspnea or signs/symptoms of VTE. Evaluation Laboratory results: Laboratory Tests 02/19/25 Range/Units 08:40 WBC 11.78 H (4.50-11.00) K/uL RBC 4.05 (4.00-5.20) m/uL Hgb 10.7 L (12.0-16.0) gm/dL Hct 32.9 L (33.0-51.0) % MCV 81 (80-100) fL MCH 26 (26-34) pg MCHC 33 (32-36) gm/dL Plt Count 210 (140-440) K/uL Creatinine 0.5 (0.5-1.5) mg/dL Estimated GFR 134 ml/min AST 19 (12-35) U/L ALT 10 (4-35) U/L Vital signs: Vital Signs - 24 hr 02/19/25 08:08 02/19/25 08:10 02/19/25 08:16 Temperature 98.2 F Pulse Rate 94 101 H Respiratory Rate 16 Blood Pressure 120/71 120/73 02/19/25 08:31 02/19/25 08:45 02/19/25 09:01 Temperature Pulse Rate 95 93 93 Respiratory Rate Blood Pressure 119/66 116/66 115/58 L 02/19/25 09:15 02/19/25 09:31 02/19/25 09:46 Temperature Pulse Rate 93 99 93 Respiratory Rate Blood Pressure 111/56 L 119/72 111/65
--- NOTE | 2025-02-19 16:57 | PC.OBNST ---
NST Note NST Note Start: 02/19/25 07:56 Freq: ONCE Status: Discharge Protocol: Document 02/19/25 11:51 BAW (Rec: 02/19/25 11:52 BAW No Response) NST Note 2 Para (# of births) 1 EDC 03/20/25 Gestational Age In 35 Weeks & 6 Days Weeks & Days Patient Presented Headache with Complaint(s) of Reactive Yes Appropriate for Yes Gestational Age SHANT Urias RNC Date 02/19/25 Reactive Yes Appropriate for Yes Gestational Age SHANT Pineda RN Date 02/19/25 OB NST charge Yes Complete NST Note Yes via Write Note The provider's electronic signature indicates the NST is reactive/appropriate for gestational age. *Note to provider: If an addendum is required, open the patient's chart and click on the note under the Nurse/Allied Health tab.
== END 2025-02-19 11:38 | disposition home or self-care (01) ==
LOC: OB OUT 07:51 → OB 07:54
PROVIDERS: Visit Provider Obstetrics & Gynecology
DX: O26.893 Other specified pregnancy related conditions, third trimester (principal); R51.9 Headache, unspecified; Z3A.35 35 weeks gestation of pregnancy
CPT/HCPCS: 36415; 59025; 82565; 84450; 84460; 85027; G0463; A9270

== ENCOUNTER 2025-02-21 09:04 | Outpatient (CLI) | payer BC, SELFPAY ==
--- NOTE | 2025-02-21 09:15 | CRLHL7_ITS ---
For Patients: As a result of the Cures Act, medical imaging exams and procedure reports are released immediately into your electronic medical record. You may view this report before your referring provider. If you have questions, please contact your health care provider. OB ULTRASOUND HARMEET by LMP: 03/20/2025. GA: 36 w, 1 d. Single. Comparison: 02/13/2025, 02/06/2025, 01/24/2025. INDICATION: Obesity. TECHNIQUE: Real time grayscale imaging of the fetus was performed. Transabdominal. CERVIX: Not visualized. POSITIONING: Vertex. AMNIOTIC FLUID: 4.8 cm. SDP (N: greater than 2 x 1 cm) BIOPHYSICAL PROFILE: 2: Gross body movements 2: tone 2: Respiratory activity 2: Amniotic fluid SDP (N: greater than 2 x 1 cm) 8/8: Total score PLACENTA: Technique: Transabdominal. PLACENTA POSITION: Posterior. DOPPLER: heart rate: 147 bpm. BIOMETRY: BPD: 9.3 cm. 37 w, 4 d, 91.0%. HC: 34.7 cm. 40 w, 2 d, 96.6%. AC: 36.6 cm. 40 w, 3 d, >97%. FL: 7.1 cm. 36 w, 4 d, 56.4%. FL/AC ratio: 19.50%. HC/AC ratio: 0.95. EFW: 3738 g. Weight: 8 lbs., 4 oz. age by this US: 38 w, 5 d. HARMEET by this US: 03/02/2025. Percentile by HARMEET: >97%. IMPRESSION: 1. Normal biophysical profile score 8/8. 2. Sonographic gestational age 38 weeks 5 days and sonographic due date 03/02/2025. Sonographic age is 18 days ahead of the clinical age. 3. Estimated weight greater than 97th percentile. Abdominal circumference greater than 97th percentile. Henrique Bradley M.D. Diagnostic Radiologist [email or web address] MARCELLUS/mitra manriquez/Dictated by: Henrique Bradley MD @ 02/21/2025 12:28:00 PM (Electronically Signed)
== END 2025-02-21 09:05 | disposition home or self-care (01) ==
LOC: US 09:04
PROVIDERS: Visit Provider Obstetrics & Gynecology
DX: O99.213 Obesity complicating pregnancy, third trimester (principal); E66.01 Morbid (severe) obesity due to excess calories; Z68.41 Body mass index [BMI] 40.0-44.9, adult; Z3A.36 36 weeks gestation of pregnancy
CPT/HCPCS: 76816; 76819; 87081; 87186; 87653

== ENCOUNTER 2025-02-21 10:18 | Outpatient (CLI) | payer BC, SELFPAY ==
[2025-02-22 07:58] LABS: Strep B DNA Probe POSITIVE (Negative)
[2025-02-22 08:31] LABS: Strep B Susceptibility Needed? Yes
== END 2025-02-21 10:19 | disposition home or self-care (01) ==
PROVIDERS: Visit Provider Midwife
DX: O99.213 Obesity complicating pregnancy, third trimester (principal); E66.01 Morbid (severe) obesity due to excess calories; Z68.41 Body mass index [BMI] 40.0-44.9, adult; Z3A.36 36 weeks gestation of pregnancy
CPT/HCPCS: 87081; 87186; 87653

== ENCOUNTER 2025-02-25 15:25 | Outpatient (CLI) | payer BC, SELFPAY ==
[2025-02-25 15:40] VITALS: PULSE 94; RESP 18; TEMP 36.8; O2SAT 100
[2025-02-25 15:49] VITALS: BP 120/73; PULSE 89
[2025-02-25 16:05] VITALS: BP 122/77; PULSE 94
[2025-02-25 16:20] VITALS: BP 116/76; PULSE 98
[2025-02-25] MEDS: ACETAMINOPHEN 500 MG TABLET 1000 MG PO (16:32)
[2025-02-25 16:35] VITALS: BP 117/74; PULSE 90
[2025-02-25] MEDS: LACTATED RINGERS 1000 ML 1,000 ML IV (16:48)
[2025-02-25] MEDS: METOCLOPRAMIDE HCL 5 MG/ML INJ 10 MG IVP (16:50)
--- NOTE | 2025-02-25 19:08 | PC.OBNST ---
NST Note NST Note Start: 02/25/25 15:40 Freq: ONCE Status: Active Protocol: Document 02/25/25 17:23 WMK (Rec: 02/25/25 19:08 WMK [id number]) NST Note 2 Para (# of births) 1 EDC 03/20/25 Gestational Age In 36 Weeks & 5 Days Weeks & Days Patient Presented Headache with Complaint(s) of Reactive Yes RN Kris RNC Date 02/25/25 Reactive Yes RN Floyd RNC Date 02/25/25 OB NST charge Yes Complete NST Note Yes via Write Note The provider's electronic signature indicates the NST is reactive/appropriate for gestational age. *Note to provider: If an addendum is required, open the patient's chart and click on the note under the Nurse/Allied Health tab.
== END 2025-02-25 17:55 | disposition home or self-care (01) ==
LOC: OB OUT 15:26 → OB 15:28
PROVIDERS: Visit Provider Obstetrics & Gynecology
DX: O26.893 Other specified pregnancy related conditions, third trimester (principal); R51.9 Headache, unspecified; Z3A.36 36 weeks gestation of pregnancy
CPT/HCPCS: 59025; G0463; A9270; J2765; J7120

== ENCOUNTER 2025-02-27 08:57 | Outpatient (CLI) | payer BC, SELFPAY ==
--- NOTE | 2025-02-27 09:15 | CRLHL7_ITS ---
For Patients: As a result of the Century Cures Act, medical imaging exams and procedure reports are released immediately into your electronic medical record. You may view this report before your referring provider. If you have questions, please contact your health care provider. INDICATION: Obesity COMPARISON: Obstetric ultrasound on February 21, 2025 and priors TECHNIQUE: Obstetric ultrasound, limited, transabdominal approach, utilizing grayscale and color Doppler as needed, biophysical profile exam FINDINGS: number: 1 Position: Vertex Placental Position: Posterior Amniotic fluid: DVP 6.5 cm. heart rate: 163 bpm. BPP Score: Fluid: 2 Breathin Movement: 0 Tone: 2 Total: 4 Uterus: No significant uterine findings. Ovaries: Not visualized Other: No pelvic free fluid IMPRESSION: Abnormal biophysical profile exam score of 4/8 with no points for tone or respiratory activity. Preliminary report was provided by the patient`s psychologist experimental following completion of the exam to Dr. Tena. Dictated by Nando Up MD @ 02/27/2025 10:26:26 AM (Electronically Signed)
== END 2025-02-27 08:58 | disposition home or self-care (01) ==
LOC: US 08:57
PROVIDERS: Visit Provider Obstetrics & Gynecology
DX: O99.210 Obesity complicating pregnancy, unspecified trimester (principal); E66.01 Morbid (severe) obesity due to excess calories; Z68.41 Body mass index [BMI] 40.0-44.9, adult
CPT/HCPCS: 76819

== ENCOUNTER 2025-02-27 11:21 | Inpatient (IN) | payer BC, SELFPAY ==
[2025-02-27] VITALS (26 sets, daily range): BP systolic 107–133; BP diastolic 65–97; PULSE 74–120; RESP 12–18; TEMP 36.4–36.9; O2SAT 95–99; BMI 46.4
[2025-02-27] MEDS: LACTATED RINGERS 500 ML 500 ML IV (10:26)
[2025-02-27 10:45] LABS: Hematocrit* 33.1 % (33.0-51.0); Hemoglobin* 10.8 gm/dL (12.0-16.0); Immature Granulocytes Abs Auto 0.07 K/uL (0.00-0.30); Immature Granulocytes Pct Auto 0.7 %; Mean Corpuscular HGB Conc 33 gm/dL (32-36); Mean Corpuscular Hemoglobin 26 pg (26-34); Mean Corpuscular Volume 81 fL (80-100); RDW Coefficient of Variation % 14.4 % (11.5-15.5); Red Blood Count* 4.10 m/uL (4.00-5.20); White Blood Count* 9.53 K/uL (4.50-11.00)
[2025-02-27 10:49] LABS: Lymphocytes Absolute Auto 1.60 K/uL (0.90-2.90)
[2025-02-27 11:19] LABS: Slide Review Reflex No
--- NOTE | 2025-02-27 11:33 | P.LDBA_ITS ---
Subjective History of Present Illness Narrative: Patient is being admitted to Labor and Delivery for 07/30 BPP. She is a 24 year old at 37.0 weeks gestation. Lakeshia reports decreased movements since last night that continued to now. Stated that if she didn't have an appointment, she would've come into the center. She had a scheduled BPP today that was nonreassuring 07/30. -2 for respiratory active and -2 for tone. SDP 6.5 cm. She has noted maybe 1 movement since being at the center but is unsure. She was sent to the center for monitoring via NST. Initial 45 minutes of reactive and reassuring strip noted. 6/10 BPP. I recommended delivery due to equivocal BPP, term gestational age, and continue decreased movement. That is also patient's preference and she would like to move forward with delivery. After our discussed, there were two subtle late decelerations and a small variable on NST. Spontaneous recovery noted. Moderate variability throughout. However, I recommended bypassing NPO status which would in 5 hrs to move towards a more urgent delivery given equivocal status. Reassured patient that we would still try for a neural axial anesthesia. Specific Issues/Plans Partner: Humza Daughter: Mary Baby boy: Clem #GBS positive Susceptibilities completed: no resistance identified # Multiple Sclerosis Diagnosed on 11/14/24 Seeing neurology. Magnesium and riboflavin during Undecided on which medication to start. Has follow up appointment Plan to start medication and not during (April) # LVL 2 US 11/18/24: intracardiac echogenic focus. 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 The fetus is Rh negative => does not need RhoGam. * F/U 12/09: Echogenic intracardiac focus re-visualized. Right sided ureterocele now associated with R distal hydroureter, normal kidneys w/o pyelectasis. * F/U w/ MFM at 28 wks for re-evaluation of R ureterocele, hydroureter and R kidney. Jan 06. Referral placed to urology for management. Can deliver in [place]. # obesity, BMI 44.9 Hemoglobin A1c: 4.8% Referral to green building engineer: Referral placed. Referral to anesthesia: Level 2 ultrasound and MFM consult: An echogenic cardiac focus and small anechoic cyst in the bladder were noted. Weekly testing (BPP) starting at 34 weeks: Scheduled Growth ultrasound at 28 and 34 weeks Delivery recommended at 39 weeks surveillance filled out on 12/13/2024 # history of * SROM 37 08/28. Arrest of descent (4 hrs of pushing) * Right occiput transverse presentation, variable decelerations, double layer closure (operative report scanned) * TOLAC Consent given on 10/11/2024 * Consent signed: [] * success: 32.3% * Declined TOLAC * Anticipated repeat delivery on 03/13/25 at 39 weeks. [scheduling form submitted on 02/06] # Rh-negative (Rh ordered in [place]) Fetus is Rh (-) so does not need rhogam # history of depression, treated with Wellbutrin XL 150 mg Imaging: * 11/18/24: EFW 80th percentile, AC 85th percentile. Posterior placenta, no previa, greater than 2 cm from internal os. Three-vessel cord. MVP 5.1 cm. Cervix visualized and closed at 3.98 cm. An echo intracardiac focus was seen in the left ventricle. A small anechoic cyst in the bladder (R ureterocele) * 12/09/24: Vtx. SDP 5.2cm. EFW: 951g, 2#2oz, 79%. Echogenic intracardiac focus. Right sided ureterocele now associated with R distal hydroureter, normal kidneys w/o pyelectasis. F/U w/ MFM at 28 wks for re-evaluation of R ureterocele, hydroureter and R kidney. Referral placed to urology for management. Can deliver in [place]. * 12/24/24: Lucho breech presentation, EFW 2 lb 12 oz or 1244 g (71%), BPD 26%, HC 58%, AC 85%, FL 33%, SDP 7.0 cm. * 01/06/2025: MS and follow-up: EFW: 1672 g, 83rd percentile. AC: 90th percentile. Recommendation: Referral was placed for pediatric urology given persistently visualized right ureter is seal and dilated distal ureter. We reviewed that this is reassuring that the bilateral renal pelvis and amniotic fluid remained normal. We discussed that this is most often associated with a duplicated collecting system with ectopic implantation of the ureter. Recommend follow-up ultrasound with MFM in 3-4 weeks to assess for renal pelvis dilation or other developing findings. There are after, anticipate weekly surveillance, which is presumed will be completed in your office. Deliveries currently recommended per routine obstetric indication at [place]. * 01/24/25 Growth BPD 92%, HC 86%, AC 96%, FL 26% EFW 87%, SDP 6.0, vertex * 02/10/25: EFW 88%tile, AC 97%tile. MVP 6.9 cm. BPP 11/29. Due to positioning, could not see right ureterocele very well. * 02/21/25: Normal biophysical profile score 11/29. Sonographic gestational age 38 weeks 5 days and sonographic due date 03/02/2025. Sonographic age is 18 days ahead of the clinical age. Estimated weight greater than 97th percentile. Abdominal circumference greater than 97th percentile. Vaccinations: COVID: Declines Flu: Declines Tdap: 02/21/25 RSV: Declines 32 week mental health: 02/21/25 Last pap: 10/22/21. PP pap OB - Problem Based A/P Additional Plan (1) Multiple sclerosis: Status: Acute (2) History of section complicating : Status: Acute (3) Rh negative status during : Status: Acute (4) Morbid obesity with BMI of 40.0-44.9, adult: Status: Acute Plan CS Consent The patient was consented for section and blood. She is having a delivery for the indication of: History of delivery x1, BPP 4-6/10. She understands that the four main categories of risk include pain, bleeding, infection, and damage to surrounding structures. Intraoperative pain will be manage with spinal anesthesia or epidural anesthesia. If that those are not effective or not appropriate for the clinical situation, general anesthesia will be administered. She understands that aspiration risk is most pronounced with general anesthesia when NPO status is less than 8hrs. Immediately postop, TAP block will be performed. Throughout her recovery course, she will have on PO pain medications such as ibuprofen, Tylenol, and oxycodone. Regarding infection, she understands that we will be delivering appropriate antibiotics, however that the risk of infection following section still is approximately 5-7%. She understands that though the risk is very low that there is always a risk of damage to the bladder, uterus, ovaries, fallopian tubes, bowels, ureters, or even the fetus (0.1-0.3%). She understands that most injuries can be addressed at the time of surgery, however, such an injury may require additional surgeries to fix. She understands that a section carries a risk of bleeding (1-5% risk of hemorrhage), and that while this bleeding can be addressed with multiple medical and surgical modalities (including hysterectomy), that there is the possibility of needing a blood transfusion (0.5-3%). She reports she would accept a blood transfusion. She understands that a section does increase risks for future pregnancies and deliveries including, but not limited to, the risk of uterine rupture or placenta accreta. Lastly, VTE after delivery rate is around 0.1-0.4%. Will decrease this risk with SCD use, early ambulation, and thromboprophylaxis medication if needed. We also reviewed postoperative care, recovery, and restrictions. All questions answered to patient's satisfaction and the best of my abilities. Consent form signed and will proceed with delivery via section. OR team notified Hgb/plt 10.8 gm/dL/ 227 T&S: Pending OB Exam Physical Exam Vital signs: Temp Pulse Resp BP Pulse Ox 98.1 F 116 H 18 127/83 98 02/27/25 10:39 02/27/25 10:18 02/27/25 10:39 02/27/25 10:18 02/27/25 10:40 Narrative: Physical exam: General: No acute distress Psych: Alert and oriented x4, full affect HEENT: Normocephalic, atraumatic Heart: Regular rate and rhythm, no murmur rub or gallop Lungs: Clear to auscultation bilaterally Abdomen: Gravid, soft, no tenderness, rebound, or guarding Incision(s): Appropriately healed Pfannenstiel incision from previous Skin: No lesions or rashes Lower extremities: Trace bilateral lower extremity edema Pelvic exam: Deferred
--- NOTE | 2025-02-27 12:13 | PM.OBPRCCS ---
Procedure Will [facility] bill your pro fee for this procedure?: Yes Procedure Description: DELIVERY BY SECTION Date of Service: 03/20/25 Delivery time: 1245 Summary: Admitted for 07/30 BPP at 37.0 weeks, Repeat lower uterine transverse section, Pfannenstiel, Closed with sutures, QBL 469 cc, No complications, Findings: Extensive adhesion between anterior fascia and rectus abdominis. Filmy intraabdominal adhesion. Bladder densely adhered to previous low transverse scar. Otherwise, normal uterus, bilateral ovaries and tubes 8/9 Weight 3690 g. Primary Indication: 1. BPP 07/30 2. Previous delivery x 1 Procedures: Repeat Lower uterine transverse section Specimens Removed: Placenta Surgeon: Carlee Tena MD [employer] Scraper Surgeon: ALEXANDRA Wang Anesthesia: Epidural and TAP Report: Prophylactic antibiotic, 3 g of Ancef was given before patient was taken to OR. After arrival to the operating room patient was placed in the supine position with left lateral tilt after administration of spinal anesthesia. Traxi retractor placed to elevated the pannus. She was prepped and draped in the usual sterile manner. Laparotomy A pfannenstiel incision was made through the anterior abdominal wall with #10 scalpel approximately 2 cm above the pubic symphysis. The incision was extended sharply with the #10 scalpel through the subcutaneous tissue to the level of fascia. The fascia was entered sharply with a #10 scalpel (Pfannenstiel) in the midline and extended in semi-elliptical fashion with Mclain scissor. The underlying muscles were dissected off the overlying fascia by grasping the superior aspect of fascia with two izaiah clamps and sharp dissection was used along the midline. Lysis of adhesion performed. The fascia was further from rectus muscle with Mclain scissor and/or cautery. In similar fashion, the lower aspect of fascia was also grasped with two Izaiah clamps and both blunt and sharp dissection was used to separate fascia from rectus muscle. The rectus muscles were in the midline sharply with Jaz's and Metzenbaum. The peritoneum was then entered sharply. The peritoneal incision was then extended superiorly and inferiorly under direct visualization with care being taken to avoid bladder and bowel. Filmy adhesions was noted. The peritoneal incision was enlarged sharply with electrocautery and by lateral traction from the surgeon's and community program assistant's hand. Matt retractor was inserted into the abdomen. Delivery A bladder flap was developed by grasping with Stateless forcep and enter with Metzenbaun scissor. Then sharp and blunt dissection with Metzenbaum scissor and fingers were performed. Lysis of adhesion performed. A low transverse hysterotomy was made then with #10 scalpel and extended laterally and cephalad with fingers in a low transverse fashion with Manu De Los Santos technique with care being taken to avoid injury to the fetus. The amniotic cavity (membrane) was then entered with spontaneous rupture of membrane, and the amniotic fluid was noted to be clear, fetus was delivered cephalic. With delivery of the baby, no extension was noted. Placenta was delivered spontaneously with steady traction on cord and manual separation of placenta from uterine wall. Closure Uterine cavity was cleaned after placental delivery with lap sponge x 4. The hysterotomy was closed in one layers with stitches using 0 vicryl with continuous locking stitches. A second layer was not feasible due to proximity of the bladder. 1 figure of 8 placed at right hysterotomy angle. 2 figure of 8s placed in the middle of the hysterotomy. Hemostasis was achieved as needed with electrocautery. The ovaries/tubes/uterine surface were evaluated. They were found to be normal. Matt retractor removed. Patti applied and hemostasis was confirmed again. Fascia was closed with running stitches using 0 looped PDS. Subcutaneous layer was irrigated. Hemostasis was checked for and found to be adequate. The subcutaneous layer was closed with running 2-0 vicryl sutures. The skin was closed with 4-0 monocryl subcuticular sutures . The incision was cleaned, steri strip applied, and Silver dressing placed. The procedure considered terminate at this time. Intraoperative Complications: None QBL: 469 cc Uterotonics/hemostatic agents: 40u of pitocin and 1g of TXA. Disposition: The patient tolerated the procedure well. She was recovered in Obstetric PACU for close monitoring in stable condition, with a contracted uterus and normal transvaginal bleeding. The was sent to mother's bedside. A segment of the cord was obtained for umbilical cord gases. Cord blood gas was not available at time of operative note entered. The placenta was sent to pathology for abnormal BPP. Cord blood not obtained due to NIPT showing fetus is Rh(-). Debrief with OR team performed and specimen reviewed at the conclusion of the procedure.
--- NOTE | 2025-02-27 13:53 | P.ANES_ITS ---
Anesthesia Charges Start Date/Time Anesthesia Start Date: 02/27/25 Anesthesia Start Time: 11:49 Stop Date/Time Anesthesia Stop Date: 02/27/25 Anesthesia Stop Time: 13:51 Summary Emergency: SENIOR COMPENSATION ANALYST Coding CPT Codes CPT Codes: ANESTH CS DELIVERY - 52742 ([id number]) P3 - PATIENT W/SEVERE SYS DISEASE Additional Codes: Summary - Emergency: SENIOR COMPENSATION ANALYST ([id number])
--- NOTE | 2025-02-27 13:53 | W.ANESCHARGE ---
Anesthesia Charges Start Date/Time Anesthesia Start Date: 02/27/25 Anesthesia Start Time: 11:49 Stop Date/Time Anesthesia Stop Date: 02/27/25 Anesthesia Stop Time: 13:51 Summary Emergency: TRIALS MANAGER Coding CPT Codes CPT Codes: ANESTH CS DELIVERY - 57805 ([id number]) P3 - PATIENT W/SEVERE SYS DISEASE Additional Codes: Summary - Emergency: TRIALS MANAGER ([id number])
--- NOTE | 2025-02-27 13:56 | W.PM.NB ---
Nerve Block Nerve Block Time Seen by Provider: 13:45 Date Seen: 02/27/25 Type of block requested by surgeon for post-operative analgesia: TAP Side: bilateral Time out performed: Yes Verification of patient name: Yes Verification of date of : Yes Site marking: site marked Name of person performing procedure: Ban Maxwell, AVANI Assistants, if any: Adali Hobson Continuous monitoring Was continuous monitoring of O2 sat, B/P, merchandise pickup/receiving associate, recorded every 15 minutes?: Yes Procedure Checklist: sterile prep, needles and gloves Ultrasound guided. Images saved: Yes Medications given in 5ml increments after negative aspiration: Marcaine %: 0.25 mL: 30 and Exparel mL: 10 Patient tolerated procedure well: Yes Block Charges Block Charge (with Pro Fee): TAP Bilateral Use of Ultrasound Machine for Block: Yes- US Guidance/pain block
[2025-02-27] MEDS: LACTATED RINGERS 1000 ML 1,000 ML 125 ML IV (16:00)
[2025-02-27] MEDS: ACETAMINOPHEN 500 MG TABLET 1000 MG PO (23:58)
[2025-02-28] MEDS: ENOXAPARIN 40 MG/0.4 ML INJ SUBCUT ×2 (01:31→13:35)
[2025-02-28] MEDS: SODIUM CHLORIDE 0.9 % (FLUSH) 10 ML SYRINGE IVF ×2 (01:31→07:40)
[2025-02-28 04:20] VITALS: BP 106/71; PULSE 87; RESP 16; TEMP 36.4; O2SAT 97
[2025-02-28 05:37] LABS: Hemoglobin* 9.8 gm/dL (12.0-16.0)
[2025-02-28] MEDS: ACETAMINOPHEN 500 MG TABLET 1000 MG PO ×2 (05:59→16:53)
[2025-02-28] MEDS: DOCUSATE SODIUM 100 MG CAPSULE PO (07:39)
[2025-02-28 08:48] VITALS: BP 110/74; PULSE 87; RESP 16; TEMP 36.7; O2SAT 97
--- NOTE | 2025-02-28 11:02 | PM.OBPNVD1 ---
OB - PN:Subj Subjective Date Seen: 02/28/25 Patient comments OB post-: no complaints, pain well controlled, tolerating diet and flatus present [place] status: and doing well [place] feeding status: exclusively Narrative: [place]hia?feels well.??Her?pain is well controlled with current medications.??She has no new complaints.??Urinary output is?adequate?and she is voiding without difficulty.??Has?a good appetite, is tolerating a general diet, is passing flatus, and has?not?had a bowel movement.??Has?scant?amount?of rubra lochia.??She?is ambulating?well.?She is working on as baby is having difficulty latching. She is working with nursing staff. She has family and her daughter visiting with her at this time. OB - PN: Obj Exam Physical Exam: Vital signs: Temp Pulse Resp BP Pulse Ox O2 Del Method 87.1 F L 87 16 110/74 97 Room Air 02/28/25 08:48 02/28/25 08:48 02/28/25 08:48 02/28/25 08:48 02/28/25 08:48 02/28/25 08:48 Narrative: GENERAL APPEARANCE:? normal?affect, alert, no distress? MOOD:? appropriate? CHEST:? clear?to auscultation and percussion? HEART:? regular?rate and rhythm? BREASTS: soft, nontender, no erythema, nipples intact? ABDOMEN:? soft, non-tender?the uterine?fundus is?U/2?and is?appropriate for?the stage of recovery.?Incision dressing is clean, dry and intact.?? EXTREMITIES:? normal?and no edema? OB - PN: Obj Data Labs Labs: Laboratory Results - last 24 hr 02/27/25 02/28/25 10:14 05:20 Hgb 9.8 L Blood Type A Negative Antibody Screen NEGATIVE OB - PN: A/P Delivery Assessment and Plan (1) Multiple sclerosis: Status: Acute (2) Morbid obesity with BMI of 40.0-44.9, adult: Status: Acute (3) Lactating mother: Status: Acute (4) care following delivery: Status: Acute (5) Anemia, : Status: Acute Plan day: 1 Plan: routine care Comments: Anticipate discharge home tomorrow.
[2025-02-28 12:41] VITALS: BP 112/75; PULSE 90; RESP 16; TEMP 36.6; O2SAT 96
[2025-02-28] MEDS: FERROUS SULFATE 325 MG TABLET PO (13:35)
[2025-02-28 16:58] VITALS: BP 111/76; PULSE 82; RESP 16; TEMP 36.4; O2SAT 91
[2025-03-01 01:24] VITALS: BP 107/68; PULSE 86; RESP 16; TEMP 36.6; O2SAT 97
[2025-03-01] MEDS: ENOXAPARIN 40 MG/0.4 ML INJ SUBCUT (01:25)
[2025-03-01] MEDS: DOCUSATE SODIUM 100 MG CAPSULE PO (08:58)
[2025-03-01 09:20] VITALS: BP 130/74; PULSE 80; RESP 18; TEMP 37.1; O2SAT 98
--- NOTE | 2025-03-01 11:19 | PM.OBDSVD1 ---
DS: Providers Provider Date Seen: 03/01/25 Date of admission: 02/27/25 11:21 Primary care physician: Not a Local Provider Admitting Clinician: Carlee Tena MD Attending Physician on discharge: Carlee Tena MD Date of Discharge: 03/01/25 DS: Diagnosis Discharge Diagnosis (1) Anemia, : Status: Acute (2) care following delivery: Status: Acute (3) Lactating mother: Status: Acute (4) Multiple sclerosis: Status: Acute (5) Morbid obesity with BMI of 40.0-44.9, adult: Status: Acute Exam Narrative: Exam Narrative: Physical exam: General: No acute distress Psych: Alert and oriented x4, full affect HEENT: Normocephalic, atraumatic Heart: Regular rate and rhythm, no murmur rub or gallop Lungs: Clear to auscultation bilaterally Abdomen: Normoactive bowel sounds, soft, no tenderness, rebound, or guarding Incision(s): Appropriately tender to palpation. Silver dressing in place. Clean, dry, and intact. No surrounding erythema, induration, or abnormal discharge/breakdown Skin: No lesions or rashes Lower extremities: Trace lower extremity edema bilaterally Pelvic exam: No lochia noted on pad Const: Vital Signs, click to edit/add: Vital Signs - 24 hr 02/28/25 12:41 02/28/25 16:58 03/01/25 01:24 Temperature 97.9 F 97.6 F 97.8 F Pulse Rate [Pulse Oximeter] 90 82 86 Respiratory Rate 16 16 16 Blood Pressure [Ri ght Arm] 112/75 111/76 107/68 Pulse Oximetry 96 91 97 Oxygen Delivery Me thod Room Air Room Air Room Air 03/01/25 09:20 Temperature 98.7 F Pulse Rate [Pulse Oximeter] 80 Respiratory Rate 18 Blood Pressure [Ri ght Arm] 130/74 Pulse Oximetry 98 Oxygen Delivery Me thod Room Air OB - DS: Summary Hospital Course Hospital Course: The patient is a 24 year old at 37.0 weeks gestation that was admitted to the Center on 02/27/25 for nonreassuring surveillance (BPP 4/8). She had an uncomplicated repeat delivery. She delivered a viable male . She is . the patient has done well. Overnight patient had no complaints. Her pain is well controlled on oral pain medications. She is tolerating a regular diet. She has passed flatus. She is ambulating without difficulty. Lochia is scant. She is urinating without altamirano. Patient denies chest pain, SOB, n/v, headache, RUQ pain, vision changes, dizziness. Patient had an insolated mild ranging BP, but otherwise all other BP wnl. Peripartum Data Procedures: Procedures Operation Date: 02/27/25 11:30 Actual Procedure Side Surgeon p Repeat Section Carlee Tena MD Gender: Male Time Spent with Patient Time attestation: Total time spent providing and/or coordinating discharge services: Discharge Plan Discharge Disposition: Home, Self-Care Date of Admission: 02/27/25 11:21 Attending Provider on Discharge: Carlee Tena Primary Care Provider: Provider,Not a Local Condition: Stable Anticipated Discharge Date/Time: 03/01/25 11:14 Discharge Medications: New docusate sodium 100 mg Capsule 100 mg PO DAILY Qty: 30 0RF ferrous sulfate 325 mg (65 mg iron) Tablet 325 mg PO Q48H 30 Days Qty: 15 0RF ibuprofen 600 mg Tablet 600 mg PO Q6H PRN (Reason: Pain) 30 Days Qty: 60 0RF Lanolin (HPA) 100 % Cream 1 applic topical Q1H PRNQty: 7 0RF oxycodone 5 mg Tablet 5 mg PO Q6H PRN (Reason: Pain) 14 Days Qty: 15 0RF Continued PZA-ohlm-AD-omega 3 fatty no.1 27-1-300 mg capsule 1 cap PO DAILY riboflavin (vitamin B2) 100 mg tablet 400 mg PO QDAY cyanocobalamin (vitamin B-12) 1,000 mcg capsule 1,000 mcg PO QDAY magnesium glycinate 100 mg magnesium capsule 350 mg PO QDAY acetaminophen 500 mg capsule 1,000 mg PO Q6H PRN promethazine 12.5 mg tablet 12.5 mg PO TID PRN (Reason: headache) Qty: 10 0RF metoclopramide HCl [Reglan] 10 mg tablet 10 mg PO Q6H PRN (Reason: nausea and vomiting) Qty: 30 1RF Discharge Orders: Discharge Order (Routine); Ordered 03/01/25 Ordered By: Carlee Tena Patient Education: Bupivacaine Liposome (By injection), OB /Breast Feeding Activity Level: Activity as Tolerated Discharge Diet: Regular Follow Up Appointments: Provider,Not a Local [Primary Care Provider, Family Practice] Forms: [employer] Info Instructions
== END 2025-03-01 13:32 | disposition home or self-care (01) | DRG 540 ==
LOC: OB OUT 11:22 → OB 11:22
PROVIDERS: Admitting Provider Obstetrics & Gynecology; Visit Provider Obstetrics & Gynecology
PROC: 10D00Z1 Extraction of Products of Conception, Low, Open Approach (ICD-10-PCS; CPT 59514; principal; 2025-02-27 11:30)
DX: O36.8130 Decreased fetal movements, third trimester, not applicable or unspecified (principal); O34.211 Maternal care for low transverse scar from previous cesarean delivery; O76 Abnormality in fetal heart rate and rhythm complicating labor and delivery; O99.824 Streptococcus B carrier state complicating childbirth; O99.354 Diseases of the nervous system complicating childbirth; G35.D Multiple sclerosis, unspecified; O99.214 Obesity complicating childbirth; E66.01 Morbid (severe) obesity due to excess calories; O26.893 Other specified pregnancy related conditions, third trimester; G89.18 Other acute postprocedural pain; Z67.11 Type A blood, Rh negative; O90.81 Anemia of the puerperium; D64.9 Anemia, unspecified; Z37.0 Single live birth; Z3A.37 37 weeks gestation of pregnancy; O99.210 Obesity complicating pregnancy, unspecified trimester; Z68.41 Body mass index [BMI] 40.0-44.9, adult
CPT/HCPCS: 01961; 36415; 64488; 76942; 85018; 85025; 86592; 86850; 86900; 86901; 99140; A4314; A9270; J0665; J0666; J0690; J1100; J1650; J1885; J2405; J2590; J3010; J7120

== ENCOUNTER 2025-04-10 13:34 | Outpatient (CLI) | payer BC, SELFPAY ==
[2025-04-15 14:43] LABS: Pap Test Digital Imaging Done
== END 2025-04-10 13:35 | disposition home or self-care (01) ==
LOC: NFLDREF 13:35
PROVIDERS: Visit Provider Physician Assistant
DX: Z12.4 Encounter for screening for malignant neoplasm of cervix (principal)
CPT/HCPCS: 87624; 87625; 88141; 88142; 88175